=== PATIENT | male | born 1990 | race Caucasian/White ===

== ENCOUNTER 2021-04-23 20:15 | Emergency (ER) | payer OTHER ==
[2021-04-23 20:47] LABS: HEMOGLOBIN 17.5 gm/dl (14.0-17.5); RED BLOOD COUNT 5.65 M/UL (4.20-5.50); WHITE BLOOD COUNT 7.1 K/UL (4.5-11.0)
[2021-04-23 21:19] LABS: BUN/CREATININE RATIO 20 (0-10)
[2021-04-23] MEDS ORDERED: ONDANSETRON ODT4 MG SL (23:05)
== END 2021-04-23 23:30 | disposition home or self-care (01) ==
LOC: ER1 20:15
PROVIDERS: Emergency Medicine
DX: R11.2 Nausea with vomiting, unspecified (principal); R19.7 Diarrhea, unspecified; E10.649 Type 1 diabetes mellitus with hypoglycemia without coma; Z88.0 Allergy status to penicillin
CPT/HCPCS: 80053; 81001; 82962; 83690; 85025; 93005; 96374; 99285; J2405